=== PATIENT | female | born 1970 | race African-American/Black ===

== ENCOUNTER 2022-11-13 16:50 | Emergency (ER) | payer OTHER ==
--- OUTSIDE RECORDS SUMMARY | 2022-11-13 16:53 | XMS REPORT | Continuity of Care Document ---
:1970 Author Organization [facility] t Address [address] [place] [address] Care Team Providers Name Role Phone Tiago ORTIZ, Harika Mosquera Primary Care Physician [phone] MIROSLAVA OLEA Attending Clinician Unavailable MD ELOISA Attending Clinician Unavailable Payers Payer Name Policy Type Policy Number Effective Date Expiration Date S cherry HARTLEYNA 2 [id number] 1999 00:00:00 Problems Condition Condition Condition Status Onset Resolution Last Treating Co mments Source Name Details Category Date Date Treatment Clinician Date Urinary Urinary Disease Active Methodi frequency frequency 06-21 st 00:00: Hospita 00 l Vulvovagin Vulvovagin Disease Active M ethodi itis itis 3 st 00:00: Hospita 00 l Uncontroll Uncontroll Disease Active M ethodi ed ed 816 st diabetes diabetes 00:00: Hospit a mellitus mellitus 00 l type 2 type 2 without without complicati complicati ons ons Allergies, Adverse Reactions, Alerts Allergy Allergy Status Severity Reaction(s) Onset Inactive Treating Comm ents Source Name Type Date Date Clinician Hydromor Propensi Active Other (See Hypotensi Methodi phone ty to Comments) 11-[address] adverse 00:00: muscle Hospita reaction 00 spasm l s to drug Family History Family Member Diagnosis Comments Start Date Stop Date Source Natural [facility] Maternal grandmother Diabetes [facility]aternal grandmother Heart disease [facility] Social History Social Habit Start Date Stop Date Quantity Comments Source Gender identity [facility] Alcohol intake 2020-06-21 2020-06-21 Current Jew 00:00:00 00:00:00 non-drinker of Hospital alcohol (finding) History of Social 2020-06-21 2020-06-[address] function 00:00:00 00:00:00 Hospital Tobacco use and 2019-05-29 2019-05-29 Smokeless Jew exposure 00:00:00 00:00:00 tobacco non-user Hospital Sex Assigned At [birth year] Jew 00:00:00 00:00:00 Hospital Smoking Status Start Date Stop Date Source Never smoked tobacco [facility] Medications Ordered Filled Start Stop Current Ordering Indication Dosage Frequency Signature Comments Components Source Medication Medication Date Date Medication? Clinician (SIG) Name Name indomethaci Yes 75mg QD Take 75 mg Methodi n SR 3-[address] (INDOCIN 10:25: daily. Hospita SR) 75 mg 11 l CR capsule allopurinoL Yes 100mg QD Take 100 M ethodi (ZYLOPRIM) 3-[address] 100 MG 10:25: mouth Hospita tablet 11 daily. l conjugated Yes Apply a Meth lisa estrogens 3-[address] (Premarin) 00:00: size Hospita 0.625 00 amount 1gm l mg/gram to the vaginal external cream vagina 2x per week before bed pen needle, Yes BD Method i diabetic 3-[address] (BD 13:32: [place] Pen Hospita ULTRA-FINE 18 [place] 32 l ADENIKE PEN gauge x NEEDLES) 32 5/32" gauge x 5/32" needle atorvastati Yes TAKE 1 Meth lisa n (LIPITOR) 8-[address] 20 MG 00:00: MOUTH Hospita tablet 00 NIGHTLY l amLODIPine Yes amlodipine M ethodi (NORVASC) 6-[address] 10 mg 00:00: tablet, Hospita tablet 00 one tab l daily hydroCHLORO Yes hydrochlor Methodi thiazide 5-[address] (HYDRODIURI 00:00: 25 mg Hospi ta L) 25 MG 00 tablet, l tablet one tab daily lisinopril Yes 20mg QD Take 1 Metho di (PRINIVIL,Z 5-23 tablet (20 st ESTRIL) 20 00:00: mg total) Ho spita mg tablet 00 by mouth l once daily. HUMALOG 100 Yes USE 100 Met hodi unit/mL 5-[address] injection 00:00: DAILY IN Hosp rowena 00 PUMP l blood sugar 2015-04 Yes For One Met hodi diagnostic 2-[address] strips 00:00: VERIO 4-5 Hospit a strip test 00 times/day l strips glucose testing lancets 33 2015-04 Yes For One Meth lisa gauge misc 2-[address] 00:00: Verio Hospita 00 lancet l device for 5times/day glucose testing Procedures This patient has no known procedures. Plan of Care Planned Activity Planned Date Details Comments Source Future Scheduled 2022-10-04 Screening for [facility] Test 05:21:53 malignant neoplasm of colon (procedure) [code = 716822966] Future Scheduled 2022-10-04 Screening for [facility] Test 05:21:53 malignant neoplasm of colon (procedure) [code = 132243365] Future Scheduled 2022-10-04 Screening for [facility] Test 05:21:53 malignant neoplasm of colon (procedure) [code = 371229849] Future Scheduled 2022-10-04 COVID-19 VACCINE (#1) [facility] Test 05:21:53 [code = COVID-19 VACCINE (#1)] Future Scheduled 2022-10-04 Pneumococcal Vaccine: [facility] Test 05:21:53 Pediatrics (0 to 5 Years) and At-Risk Patients (6 to 64 Years) (1 - PCV) [code = Pneumococcal Vaccine: Pediatrics (0 to 5 Years) and At-Risk Patients (6 to 64 Years) (1 - PCV)] Future Scheduled 2022-10-04 DIABETES: RETINAL EYE [facility] Test 05:21:53 EXAM [code = DIABETES: RETINAL EYE EXAM] Future Scheduled 2022-10-04 DIABETIC FOOT EXAM [facility] Test 05:21:53 [code = DIABETIC FOOT EXAM] Future Scheduled 2022-10-04 Hepatitis C screening [facility] Test 05:21:53 (procedure) [code = 179733276] Future Scheduled 2022-10-04 [facility] Test 05:21:53 malignant neoplasm of cervix (procedure) [code = 143803180] Future Scheduled 2022-10-04 BREAST CANCER [facility] Test 05:21:53 SCREENING [code = BREAST CANCER SCREENING] Future Scheduled 2022-10-04 [facility]ening for [facility] Test 05:21:53 malignant neoplasm of colon (procedure) [code = 279577584] Future Scheduled 2022-10-04 [facility]ening for [facility] Test 05:21:53 malignant neoplasm of colon (procedure) [code = 895297160] Future Scheduled 2022-10-04 URINE MICROALBUMIN [facility] Test 05:21:53 [code = URINE MICROALBUMIN] Future Scheduled 2022-10-04 SHINGLES VACCINES ([facility] Test 05:21:53 of 2) [code = SHINGLES VACCINES (1 of 2)] Future Scheduled 2022-10-04 INFLUENZA VACCINE [facility] Test 05:21:53 [code = INFLUENZA VACCINE] Encounters Start End Encounter Admission Attending Care Care Encounter Source Date/Time Date/Time Type Type Clinicians Facility Department ID 2021-08-03 2021-08-03 Outpatient MIROSLAVA OLEA [id number] [place] 00:00:00 00:00:00 Lamine lang 2021-08-03 2021-08-03 Outpatient TONE HUNT [id number] [place] 00:00:00 00:00:00 MD Lamine DUMONT 2021-06-30 2021-06-30 Outpatient TONE HUNT [id number] [place] 00:00:00 00:00:00 MD Lamine DUMONT 2021-06-01 2021-06-01 Outpatient MIROSLAVA OLEA [id number] [place] 00:00:00 00:00:00 Lamine lang 2021-02-18 2021-02-18 Outpatient TONE HUNT [id number] [place] 00:00:00 00:00:00 MD Lamine DUMONT 2020-06-21 2020-06-21 Outpatient [facility] [id number] [address] [place] [address] 00:00:00 00:00:[address] Results This patient has no known results.
--- NOTE | 2022-11-13 17:26 | RAD REPORT ---
EXAM DESCRIPTION: RAD - Chest Single View - 11/13/2022 5:21 pm CLINICAL HISTORY: CHEST PAIN COMPARISON: <Comparisons> FINDINGS: Lines: None. Lungs: No evidence of edema or pneumonia. Pleural: No significant pleural effusions or pneumothorax. Cardiac: The heart size is within normal limits. Mediastinum: Within normal limits. Bones: No acute fractures. Other: None IMPRESSION: No acute cardiopulmonary disease.
[2022-11-13 17:34] LABS: Absolute Lymphocytes (CBC) 4.1 K/uL (0.7-4.9); Hematocrit 41.8 % (36.0-45.0); MCV 88.1 fL (80-100); MPV 8.6 fL (7.6-11.3); RBC Red Blood Cell Count 4.74 M/uL (3.86-4.86)
[2022-11-13 17:51] LABS: Specific Gravity 1.014 (1.005-1.030); Urine Bacteria <20 /HPF (<20); Urine Bilirubin NEGATIVE (Negative); Urine Blood Negative (Negative); Urine Clarity Extremely Turbid (Clear); Urine Color Light-Yellow (Yellow); Urine Glucose NEGATIVE (Negative); Urine Mucus Slight /HPF (None Seen); Urine Protein NEGATIVE (Negative); Urine RBC <5 /HPF (None Seen); Urine Urobilinogen Normal (Normal)
[2022-11-13 17:55] LABS: ALT/SGPT 25 U/L (13-56); Albumin 4.2 g/dL (3.4-5.0); Alkaline Phosphatase 85 U/L (45-117); BUN Blood Urea Nitrogen 22 mg/dL (7-18); Bicarbonate 21 mEq/L (21-32); Bilirubin Total 0.3 mg/dL (0.2-1.0); Glomerular Filtration Rate 40 ml/min (=/>90); Glucose Level 156 mg/dL (74-106); Protein, Total 8.3 g/dL (6.4-8.2); Sodium Level 136 mEq/L (136-145); Troponin High Sensitivity 5.7 pg/mL (<58.9)
[2022-11-13 18:14] LABS: AST/SGOT 20 U/L (15-37); Potassium 4.4 mEq/L (3.5-5.1)
[2022-11-13 18:15] LABS: Bilirubin Direct < 0.1 mg/dL (0-0.2); Bilirubin Indirect, Calculated ND mg/dL (0.2-0.8); Magnesium 2.1 mg/dL (1.6-2.4)
--- NOTE | 2022-11-13 22:07 | ER ---
Nurse's Notes [facility] Name: Lynne Fung Age: 52 yrs Sex: Female : 1970 Arrival Date: 11/13/2022 Time: 16:50 Bed 7 Private MD: Diagnosis: Hypoglycemia, unspecified;Dysuria Presentation: 11/13 16:56 Chief complaint: EMS states: they were called to the patients home for low blood sugar. ap3 patient is a type 1 diabetic, and her meter was reading 40. patient ate a snack and started drinking orange juice. on patients arrival, patients blood sugar was 119. Coronavirus screen: At this time, the client does not indicate any symptoms associated with coronavirus-19. Ebola Screen: No symptoms or risks identified at this time. Risk Assessment: Do you want to hurt yourself or someone else? Patient reports no desire to harm self or others. Onset of symptoms was November 13, 2022. 16:56 Method Of Arrival: EMS: [facility] ap3 16:56 Acuity: ANATOLIY 3 ap3 17:00 Care prior to arrival: Medication(s) given: zofran 4 mg, IV initiated. 20 GA, in the ap3 right antecubital area. 19:11 Initial Sepsis Screen: Does the patient meet any 2 criteria? No. Patient's initial ap3 sepsis screen is negative. Does the patient have a suspected source of infection? No. Patient's initial sepsis screen is negative. Triage Assessment: 16:58 General: Appears in no apparent distress. Behavior is cooperative, anxious. Pain: ap3 Denies pain. Neuro: Level of Consciousness is awake, alert, obeys commands, Oriented to person, place, time, situation. Cardiovascular: Patient's skin is warm and dry. Respiratory: Airway is patent Respiratory effort is even, unlabored, Respiratory pattern is regular, symmetrical. GI: Reports nausea. 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 - Social history:: Smoking status: Patient denies any tobacco usage or history of. - Family history:: not pertinent. Screenin:59 [facility] ED Fall Risk Assessment (Adult) History of falling in the last 3 months, ap3 including since admission No falls in past 3 months (0 pts). Abuse screen: Denies threats or abuse. Nutritional screening: No deficits noted. Tuberculosis screening: No symptoms or risk factors identified. Assessment: 19:12 Reassessment: Patient and/or family updated on plan of care and expected duration. Pain ap3 level reassessed. Patient is alert, oriented x 3, equal unlabored respirations, skin warm/dry/pink. Patient states feeling better. Patient states symptoms have improved. 19:12 General: report given to Macy RN and LUBA Molina. ap3 19:56 General: Appears in no apparent distress. comfortable, Behavior is calm, cooperative. lg3 Pain: Denies pain. Neuro: No deficits noted. Ramirez Agitation-Sedation Scale (RASS): 0 - Alert and Calm Level of Consciousness is awake, alert, obeys commands, Oriented to person, place, time, situation. Cardiovascular: No deficits noted. Denies chest pain, shortness of breath, Capillary refill < 3 seconds Clubbing of nail beds is absent JVD is absent Patient's skin is warm and dry. Respiratory: No deficits noted. Airway is patent Respiratory effort is even, unlabored, Respiratory pattern is regular, symmetrical. GI: No deficits noted. No signs and/or symptoms were reported involving the gastrointestinal system. : No deficits noted. No signs and/or symptoms were reported regarding the genitourinary system. EENT: No deficits noted. No signs and/or symptoms were reported regarding the EENT system. Derm: No deficits noted. No signs and/or symptoms reported regarding the dermatologic system. Skin is intact, is healthy with good turgor, Skin is dry, Skin is normal, Skin temperature is warm. Musculoskeletal: No deficits noted. No signs and/or symptoms reported regarding the musculoskeletal system. Circulation, motion, and sensation intact. Range of motion: intact in all extremities. 21:34 Reassessment: Patient appears in no apparent distress at this time. No changes from lg3 previously documented assessment. Patient and/or family updated on plan of care and expected duration. Pain level reassessed. Patient is alert, oriented x 3, equal unlabored respirations, skin warm/dry/pink. Patient denies pain at this time. Patient states feeling better. Patient states symptoms have improved. Vital Signs: 17:39 BP 113 / 70 LA Sitting; Pulse 105; Resp 17; Temp 98.6(O); Pulse Ox 98% on R/A; rs5 17:42 BP 113 / 70; Pulse 102; Pulse Ox 98% on R/A; ap3 18:19 BP 126 / 82; Pulse 98; Pulse Ox 97% on R/A; ap3 19:56 BP 121 / 77; Pulse 90; Resp 17 S; Pulse Ox 98% on R/A; lg3 21:34 BP 129 / 82; Pulse 86; Resp 16 S; Pulse Ox 98% on R/A; lg3 ED Course: 16:56 Patient arrived in ED. ap3 16:56 Berny Watson MD is Attending Physician. rt 16:57 Triage completed. ap3 16:59 Nolvia Cheek, RN is Primary Nurse. ap3 16:59 Arm band placed on right wrist. ap3 16:59 Patient has correct armband on for positive identification. Bed in low position. Call ap3 light in reach. Side rails up X 1. Pulse ox on. NIBP on. 17:22 XRAY Chest (1 view) In Process Unspecified. EDMS 18:44 Attending Physician role handed off by Berny Watson MD jr11 18:44 Philipp Mari MD is Attending Physician. jr11 19:11 No provider procedures requiring assistance completed. ap3 21:05 Attending Physician role handed off by Philipp Mari MD sp4 21:05 Arcadio Mckeon MD is Attending Physician. sp4 22:18 IV discontinued, intact, bleeding controlled, No redness/swelling at site. Pressure lg3 dressing applied. Administered Medications: 19:06 Drug: NS 0.9% IV 1000 ml Route: IV; Rate: 1 bolus; Site: right antecubital; ap3 21:32 Follow up: Response: No adverse reaction; IV Status: Completed infusion; IV Intake: lg3 1000ml Medication: 22:18 VIS not applicable for this client. lg3 Intake: 21:32 IV: 1000ml; Total: 1000ml. lg3 Outcome: 22:06 Discharge ordered by . sp4 22:18 Discharged to home ambulatory. lg3 22:18 Condition: stable 22:18 Discharge instructions given to patient, Instructed on discharge instructions, follow up and referral plans. medication usage, Demonstrated understanding of instructions, follow-up care, medications, Prescriptions given X 1. 22:18 Patient left the ED. lg3 Signatures: Dispatcher [employer] EDMS Nolvia Cheek RN RN ap3 Macy Damon RN RN lg3 Philipp Mari MD MD jr11 Berny Watson MD MD rt Jeremy Almaguer RN RN rs5 Arcadio Mckeon MD MD sp4 Corrections: (The following items were deleted from the chart) 16:58 16:57 PMHx: Diabetes mellitus; ap3 ap3
--- NOTE | 2022-11-13 22:07 | EDPHYS ---
Physician Documentation [facility] Name: Lynne Fung Age: 52 yrs Sex: Female : 1970 Arrival Date: 11/13/2022 Time: 16:50 Bed 7 Private MD: ED Physician Arcadio Mckeon HPI: 11/13 17:29 This 52 yrs old Black Female presents to ER via EMS with complaints of Low Blood Sugar. rt 17:29 Patient presents to the ED with hypoglycemia. Patient does use an insulin pump and a rt continuous glucose monitor. She states that her blood sugar dropped to 40. She states that for months, her blood sugar will drop into the 50s overnight but is never dropped this low before. Patient states that she felt very weak, shaky when this occurred. Patient did drink some juice, ate some cookies which did improve her blood sugar, subsequently developed a left-sided chest pain, worse with movement and deep inspiration. Denies other acute complaints at this time. Symptoms are moderate severity, no other aggravating or alleviating factors. 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 - Social history:: Smoking status: Patient denies any tobacco usage or history of. - Family history:: not pertinent. ROS: 17:29 Constitutional: Negative for fever, chills, and weight loss, Respiratory: Negative for rt shortness of breath, cough, wheezing, and pleuritic chest pain, Abdomen/GI: Negative for abdominal pain, nausea, vomiting, diarrhea, and constipation, MS/Extremity: Negative for injury and deformity, Skin: Negative for injury, rash, and discoloration, Psych: Negative for depression, anxiety, suicide ideation, homicidal ideation, and hallucinations. 17:29 Cardiovascular: Positive for chest pain, Negative for edema. 17:29 Neuro: Positive for weakness, Negative for altered mental status. Exam: 17:29 Constitutional: This is a well developed, well nourished patient who is awake, alert, rt and in no acute distress. Head/Face: Normocephalic, atraumatic. Chest/axilla: Normal chest wall appearance and motion. Nontender with no deformity. No lesions are appreciated. Cardiovascular: Regular rate and rhythm with a normal S1 and S2. No gallops, murmurs, or rubs. Normal PMI, no JVD. No pulse deficits. Respiratory: Lungs have equal breath sounds bilaterally, clear to auscultation and percussion. No rales, rhonchi or wheezes noted. No increased work of breathing, no retractions or nasal flaring. Abdomen/GI: Soft, non-tender, with normal bowel sounds. No distension or tympany. No guarding or rebound. No evidence of tenderness throughout. Skin: Warm, dry with normal turgor. Normal color with no rashes, no lesions, and no evidence of cellulitis. MS/ Extremity: Pulses equal, no cyanosis. Neurovascular intact. Full, normal range of motion. Neuro: Awake and alert, GCS 15, oriented to person, place, time, and situation. Cranial nerves II-XII grossly intact. Motor strength 5/5 in all extremities. Sensory grossly intact. Cerebellar exam normal. Normal gait. Psych: Awake, alert, with orientation to person, place and time. Behavior, mood, and affect are within normal limits. 18:03 ECG was reviewed by the Attending Physician. rt Vital Signs: 17:39 BP 113 / 70 LA Sitting; Pulse 105; Resp 17; Temp 98.6(O); Pulse Ox 98% on R/A; rs5 17:42 BP 113 / 70; Pulse 102; Pulse Ox 98% on R/A; ap3 18:19 BP 126 / 82; Pulse 98; Pulse Ox 97% on R/A; ap3 19:56 BP 121 / 77; Pulse 90; Resp 17 S; Pulse Ox 98% on R/A; lg3 21:34 BP 129 / 82; Pulse 86; Resp 16 S; Pulse Ox 98% on R/A; lg3 MDM: 16:56 Patient medically screened. rt 22:08 Differential diagnosis: hyperglycemia, hyperthyroidism, hypoglycemic episode, sp4 hypothyroidism, myxedema coma, new onset diabetes. Data reviewed: vital signs, nurses notes, lab test result(s). Consideration of Admission/Observation Escalation of care including admission/observation considered. ED course: Blood sugar stabilized unless blood sugar 150. Patient is feeling better. Patient will be switched to cephalexin instead of Bactrim for her UTI. Patient requested to be referred to pattern clerk and we can refer patient to Dr. Andres in [place]. 11/13 16:57 Order name: Basic Metabolic Panel; Complete Time: 18:44 rt 11/13 16:57 Order name: CBC with Diff; Complete Time: 17:47 rt 11/13 16:57 Order name: D-Dimer; Complete Time: 18:44 rt 11/13 16:57 Order name: LFT's; Complete Time: 18:44 rt 11/13 16:57 Order name: Magnesium; Complete Time: 18:44 rt 11/13 16:57 Order name: Troponin HS; Complete Time: 18:44 rt 11/13 16:57 Order name: Lactate w/ 2H reflex if indic.; Complete Time: 18:44 rt 11/13 16:57 Order name: UAM; Complete Time: 18:44 rt 11/13 21:44 Order name: Glucose, Ancillary Testing; Complete Time: 21:56 EDMS 11/13 16:57 Order name: XRAY Chest (1 view); Complete Time: 17:29 rt 11/13 16:57 Order name: EKG; Complete Time: 16:57 rt 11/13 16:57 Order name: Cardiac monitoring; Complete Time: 17:57 rt 11/13 16:57 Order name: EKG - Nurse/Tech; Complete Time: 17:57 rt 11/13 16:57 Order name: IV Saline Lock; Complete Time: 16:59 rt 11/13 16:57 Order name: Labs collected and sent; Complete Time: 16:59 rt 11/13 16:57 Order name: O2 Per Protocol; Complete Time: 16:59 rt 11/13 16:57 Order name: O2 Sat Monitoring; Complete Time: 16:59 rt 11/13 21:18 Order name: Accucheck Blood Glucose; Complete Time: 21:32 sp4 EC:03 Rate is 103 beats/min. Rhythm is regular, Sinus tachycardia with No ectopy. QRS [place] is rt Normal. LA interval is normal. QRS interval is normal. QT interval is normal. No Q waves. T waves are Normal. No ST changes noted. Interpreted by me. Administered Medications: 19:06 Drug: NS 0.9% IV 1000 ml Route: IV; Rate: 1 bolus; Site: right antecubital; ap3 21:32 Follow up: Response: No adverse reaction; IV Status: Completed infusion; IV Intake: lg3 1000ml Disposition Summary: 11/13/22 22:06 Discharge Ordered Location: Home sp4 Problem: new sp4 Symptoms: have improved sp4 Condition: Stable sp4 Diagnosis - Hypoglycemia, unspecified sp4 - Dysuria sp4 Followup: sp4 - With: Private Physician - When: 1 - 2 days - Reason: Recheck today's complaints Discharge Instructions: - Discharge Summary Sheet sp4 - Hypoglycemia sp4 Forms: - Patient Portal Instructions sp4 Prescriptions: - Cephalexin 250 mg Oral Capsule - take 1 capsule by ORAL route every 12 hours for 10 days; 20 capsule; Refills: sp4 0, Product Selection Permitted Signatures: Dispatcher [employer] Nolvia Terry RN RN ap3 Philipp Mari MD MD jr11 Berny Watson MD MD rt Arcadio Mckeon MD MD sp4 Macy Damon RN lg3 Corrections: (The following items were deleted from the chart) 16:58 16:57 PMHx: Diabetes mellitus; ap3 ap3
[2022-11-13 23:12] VITALS: TEMP 98.6
[2022-11-13 23:14] VITALS: O2SAT 98
[2022-11-13 23:16] VITALS: BP 129/82
--- NOTE | 2022-11-15 17:41 | EKG ---
Test Date: 2022-11-13 Test Time: 17:58:43 Shelter Advocate: VIANCA MEASUREMENT RESULTS: Intervals: Rate: 103 NH: 130 QRSD: 88 QT: 370 QTc: 484 [place]: P: 80 NH: 130 QRS: 44 T: 64 INTERPRETIVE STATEMENTS: Sinus tachycardia Otherwise normal ECG Compared to ECG 06/05/2007 04:31:53 Sinus rhythm no longer present Left ventricular hypertrophy no longer present Electronically Signed On 11-15-22 17:35:33 CDT by Jude Kelly
== END 2022-11-13 22:18 | disposition home or self-care (01) ==
LOC: ER 16:50
DX: E10.649 Type 1 diabetes mellitus with hypoglycemia without coma (principal); Z79.4 Long term (current) use of insulin; Z96.41 Presence of insulin pump (external) (internal); R30.0 Dysuria; I10 Essential (primary) hypertension
CPT/HCPCS: 36415; 71045; 80048; 80076; 81001; 82947; 83605; 83735; 84484; 85025; 85379; 93005; 96360; 96361; 99284

== ENCOUNTER 2023-03-12 04:33 | Emergency (ER) | payer OTHER ==
--- OUTSIDE RECORDS SUMMARY | 2023-03-12 04:37 | XMS REPORT | Continuity of Care Document ---
:1970 Author Organization [facility] t Address [address] [place] [address] Care Team Providers Name Role Phone Tiago ORTIZ, Harika Mosquera Primary Care Physician [phone] ANKUSH MOTTA Attending Clinician Unavailable MIROSLAVA OLEA Attending Clinician Unavailable MD ELOISA Attending Clinician Unavailable Payers Payer Name Policy Type Policy Number Effective Date Expiration Date S cherry COLLIER 2 [id number] 1999 00:00:00 Problems Condition Condition Condition Status Onset Resolution Last Treating Co mments Source Name Details Category Date Date Treatment Clinician Date Urinary Urinary Disease Active Methodi frequency frequency 06-21 00:00: Hospita 00 l Vulvovagin Vulvovagin Disease Active M ethodi itis itis [address] [facility] 00:00: Hospita 00 l Uncontroll Uncontroll Disease Active M ethodi ed ed [address] [facility] diabetes diabetes 00:00: Hospit a mellitus mellitus 00 l type 2 type 2 without without complicati complicati ons ons Allergies, Adverse Reactions, Alerts Allergy Allergy Status Severity Reaction(s) Onset Inactive Treating Comm ents Source Name Type Date Date Clinician Divya Short Active Other (See Hypotensi Methodi phone ty to Comments) 11-[address] adverse 00:00: muscle Hospita reaction 00 spasm l s to drug Family History Family Member Diagnosis Comments Start Date Stop Date Source [facility] Maternal grandmother Diabetes [facility] Maternal grandmother Heart disease [facility] Paternal grandmother Cancer [facility] Social History Social Habit Start Date Stop Date Quantity Comments Source Gender identity [facility] Alcohol intake 2020-06-21 2020-06-21 Current [facility] 00:00:00 00:00:00 non-drinker of Hospital alcohol (finding) History of Social 2020-06-21 2020-06-[address] function 00:00:00 00:00:00 Hospital Tobacco use and 2019-05-29 2019-05-29 Smokeless [facility] exposure 00:00:00 00:00:00 tobacco non-user Hospital Sex Assigned At [birth year] [facility] 00:[facility]:00 [facility] Smoking Status Start Date Stop Date Source Never smoked tobacco [facility] Medications Ordered Filled Start Stop Current [...] 10:25: mouth Hospita tablet 11 daily. l indomethaci Yes 75mg QD Take 75 mg [...] cream vagina 2x per week before bed conjugated Yes Apply a Meth lisa estrogens 3-[address] (Premarin) 00:00: size Hospita 0.625 00 amount 1gm l mg/gram to the vaginal external cream vagina 2x per week before bed pen needle, Yes BD Method i diabetic [address] (BD 13:32: Saeed Pen [facility]osp[facility] ULTRA-FINE 18 [place] 32 l SAEED PEN gauge x NEEDLES) 32 5/32" gauge x 5/32" needle pen needle, Yes BD Method i diabetic 3-[address] (BD 13:32: Saeed Pen [facility]osp[facility] ULTRA-FINE 18 [place] 32 l SAEED PEN gauge x NEEDLES) 32 5/32" gauge x 5/32" needle atorvastati Yes TAKE 1 Meth lisa n (LIPITOR) 8-[address] 20 MG 00:00: MOUTH Hospita tablet 00 NIGHTLY l atorvastati Yes TAKE 1 Meth lisa n (LIPITOR) 8-[address] 20 MG 00:00: MOUTH [facility]ospita tablet 00 NIGHTLY l amLODIPine Yes amlodipine M ethodi (NORVASC) 6-[address] 10 mg 00:00: tablet, Hospita tablet 00 one tab l daily amLODIPine Yes amlodipine M ethodi (NORVASC) 6-[address] 10 mg 00:00: tablet, Hospita tablet 00 one tab l daily hydroCHLORO Yes hydrochlor Methodi thiazide 5-[address] (HYDRODIURI 00:00: 25 mg Hospi ta L) 25 MG 00 tablet, l tablet one tab daily hydroCHLORO Yes hydrochlor Methodi thiazide 5-[address] (HYDRODIURI 00:00: 25 mg Hospi ta L) 25 MG 00 tablet, l tablet one tab daily lisinopril Yes 20mg QD Take 1 Metho di (PRINIVIL,Z 5-23 tablet (20 st ESTRIL) 20 00:00: mg total) Ho spita mg tablet 00 by mouth l once daily. lisinopril Yes 20mg QD Take 1 Metho di (PRINIVIL,Z 5-23 tablet (20 st ESTRIL) 20 00:00: mg total) Ho spita mg tablet 00 by mouth l once daily. HUMALOG 100 Yes USE 100 Met hodi unit/mL 5-[address] injection 00:00: DAILY IN Hosp rowena 00 PUMP l HUMALOG 100 Yes USE 100 Met hodi [...] lancet l device for 5times/day glucose testing blood sugar 2015-04 Yes For One Met [...] Planned Date Details Comments Source Future Scheduled 2023-02-07 Screening for [facility] Test 04:30:53 malignant neoplasm of colon (procedure) [code = 045738603] Future Scheduled 2023-02-07 Screening for [facility] Test 04:30:53 malignant neoplasm of colon (procedure) [code = 503500912] Future Scheduled 2023-02-07 Screening for [facility] Test 04:30:53 malignant neoplasm of colon (procedure) [code = 628345094] Future Scheduled 2023-02-07 COVID-19 VACCINE (#1) [facility] Test 04:30:53 [code = COVID-19 VACCINE (#1)] Future Scheduled 2023-02-07 Pneumococcal Vaccine: [facility] Test 04:30:53 Pediatrics (0 to 5 Years) and At-Risk Patients (6 to 64 Years) (1 - PCV) [code = Pneumococcal Vaccine: Pediatrics (0 to 5 Years) and At-Risk Patients (6 to 64 Years) (1 - PCV)] Future Scheduled 2023-02-07 DIABETES: RETINAL EYE [facility] Test 04:30:53 EXAM [code = DIABETES: RETINAL EYE EXAM] Future Scheduled 2023-02-07 DIABETIC FOOT EXAM [facility] Test 04:30:53 [code = DIABETIC FOOT EXAM] Future Scheduled 2023-02-07 Hepatitis C screening [facility] Test 04:30:53 (procedure) [code = 268525998] Future Scheduled 2023-02-07 Screening for [facility] Test 04:30:53 malignant neoplasm of cervix (procedure) [code = 223137671] Future Scheduled 2023-02-07 BREAST CANCER [facility] Test 04:30:53 SCREENING [code = BREAST CANCER SCREENING] Future Scheduled 2023-02-07 Screening for [facility] Test 04:30:53 malignant neoplasm of colon (procedure) [code = 061443488] Future Scheduled 2023-02-07 Screening for [facility] Test 04:30:53 malignant neoplasm of colon (procedure) [code = 155771764] Future Scheduled 2023-02-07 [facility] Test 04:30:53 [code = URINE MICROALBUMIN] Future Scheduled 2023-02-07 SHINGLES VACCINES ([facility] Test 04:30:53 of 2) [code = SHINGLES VACCINES (1 of 2)] Future Scheduled 2023-02-07 INFLUENZA VACCINE (#1) [facility] Test 04:30:53 [code = INFLUENZA VACCINE (#1)] Future Scheduled 2022-10-04 Screening for [facility] Test 05:21:53 malignant neoplasm of colon (procedure) [code = 507433351] Future Scheduled 2022-10-04 Screening for [facility] Test 05:21:53 malignant neoplasm of colon (procedure) [code = 957780352] Future Scheduled 2022-10-04 Screening for [facility] Test 05:21:53 malignant neoplasm of colon (procedure) [code = 923950757] Future Scheduled 2022-10-04 COVID-19 VACCINE (#1) [facility] Test 05:21:53 [code = COVID-19 VACCINE (#1)] Future Scheduled 2022-10-04 Pneumococcal Vaccine: [facility] Test 05:21:53 Pediatrics (0 to 5 Years) and At-Risk Patients (6 to 64 Years) (1 - PCV) [code = Pneumococcal Vaccine: Pediatrics (0 to 5 Years) and At-Risk Patients (6 to 64 Years) (1 - PCV)] Future Scheduled 2022-10-04 DIABETES: RETINAL EYE [facility] Test 05:21:53 EXAM [code = DIABETES: RETINAL EYE EXAM] Future Scheduled 2022-10-04 DIABETIC FOOT EXAM [facility] Test 05:21:53 [code = DIABETIC FOOT EXAM] Future Scheduled 2022-10-04 Hepatitis C screening [facility] Test 05:21:53 (procedure) [code = 140098422] Future Scheduled 2022-10-04 Screening for [facility] Test 05:21:53 malignant neoplasm of cervix (procedure) [code = 949543099] Future Scheduled 2022-10-04 BREAST CANCER [facility] Test 05:21:53 SCREENING [code = BREAST CANCER SCREENING] Future Scheduled 2022-10-04 Screening for [facility] Test 05:21:53 malignant neoplasm of colon (procedure) [code = 964841801] Future Scheduled 2022-10-04 Screening for [facility] Test 05:21:53 malignant neoplasm of colon (procedure) [code = 506094822] Future Scheduled 2022-10-04 URINE MICROALBUMIN [facility] dist [...] Date/Time Type Type Clinicians Facility Department ID 2022-11-24 2022-11-24 Outpatient KENYA MOTTA [id number] [place] 08:30:00 08:30:00 ANKUSH Seybol d 2022-11-17 2022-11-17 Outpatient KENYA MOTTA [id number] [place] 09:15:00 09:15:00 ANKUSH Seybol d 2022-11-17 2022-11-17 Outpatient KENYA MOTTA [id number] [place] 08:45:00 08:45:00 ANKUSH Seybol d 2021-08-03 2021-08-03 Outpatient MIROSLAVA OLEA [id number] [place] 00:00:00 00:00:00 Seybol d 2021-08-03 2021-08-03 Outpatient TONE HUNT [id number] [place] 00:00:00 00:00:00 MD Anuj DUMONTybol precious 2021-06-30 2021-06-30 Outpatient TONE HUNT [id number] [place] 00:00:00 00:00:00 MD Lamine DUMONT 2021-06-01 2021-06-01 Outpatient MIROSLAVA OLEA [id number] [place] 00:00:00 00:00:00 Lamine lang 2021-02-18 2021-02-18 Outpatient TONE HUNT [id number] [place] 00:00:00 00:00:00 MD Lamine DUMONT 2020-06-21 2020-06-21 Outpatient [facility] [id number] [address] [place] [address] 00:00:00 00:00:[address] Results This patient has no known results.
[2023-03-12] MEDS ORDERED: MORPHINE 4 MG/ML SYR ONE (05:16)
[2023-03-12] MEDS ORDERED: GUAIFENESIN/DM 5 ML UCUP ONE (05:16)
[2023-03-12] MEDS ORDERED: ONDANSETRON 4 MG/2 ML VIAL ONE (05:16)
[2023-03-12] MEDS ORDERED: NA CHLORIDE 0.9% 1,000 ML ONE (05:16)
[2023-03-12] MEDS ORDERED: KETOROLAC 30 MG/ML INJ ONE (05:16)
[2023-03-12 05:33] LABS: Absolute Lymphocytes (CBC) 2.8 K/uL (0.7-4.9); Hematocrit 39.4 % (36.0-45.0); Lymphocytes % 34.7 % (15.3-44.8); MCV 87.6 fL (80-100); MPV 8.2 fL (7.6-11.3); Platelets 280 thou/uL (152-406)
[2023-03-12 05:35] LABS: Protime INR 1.08
[2023-03-12 05:55] LABS: ALT/SGPT 18 U/L (13-56); AST/SGOT 19 U/L (15-37); Albumin 3.6 g/dL (3.4-5.0); Alkaline Phosphatase 88 U/L (45-117); BUN Blood Urea Nitrogen 8 mg/dL (7-18); Bicarbonate 28 mEq/L (21-32); Bilirubin Total 0.3 mg/dL (0.2-1.0); Glomerular Filtration Rate 64 ml/min (=/>90); Glucose Level 71 mg/dL (74-106); Magnesium 2.4 mg/dL (1.6-2.4); NT PRO-BNP 14 pg/mL (<125); Potassium 3.4 mEq/L (3.5-5.1); Protein, Total 7.9 g/dL (6.4-8.2); Sodium Level 138 mEq/L (136-145); Troponin High Sensitivity 7.3 pg/mL (<58.9)
[2023-03-12 06:03] LABS: Bilirubin Direct < 0.1 mg/dL (0-0.2); Bilirubin Indirect, Calculated ND mg/dL (0.2-0.8)
[2023-03-12 06:10] LABS: SARS-COV-2 RT PCR NEGATIVE (NEGATIVE)
--- NOTE | 2023-03-12 07:55 | EDPHYS ---
Physician Documentation [facility] Name: Lynne Fung Age: 53 yrs Sex: Female : 1970 Arrival Date: 03/12/2023 Time: 04:33 Bed 7 Private MD: ED Physician Arcadio Mckeon HPI: 03/12 04:51 This 53 yrs old Black Female presents to ER via Ambulatory with complaints of General sp4 complaint . 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 05:25 -year-old female with history of hypertensive disorder, hypercholesterolemia, sp4 insulin-dependent diabetes with insulin pump, presents with 2 weeks of cough, fevers, feeling unwell, also vomiting this morning and left-sided pleuritic chest pain. . 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 - Social history:: Smoking status: Patient denies any tobacco usage or history of. Patient/guardian denies using alcohol, street drugs. - Family history:: not pertinent. ROS: 05:25 Constitutional: Positive fever, positive cough, positive pleuritic pain, positive sp4 left-sided pleuritic pain, positive vomiting Exam: 05:24 ECG was reviewed by the Attending Physician. There is EKG at 0 514, normal sinus rhythm sp4 normal EKG. EKG rate 89 05:25 Constitutional: This is a well developed, well nourished patient who is awake, alert, sp4 and in no acute distress. Head/Face: Normocephalic, atraumatic. Eyes: Pupils equal round and reactive to light, extra-ocular motions intact. Lids and lashes normal. Conjunctiva and sclera are not injected. Cornea within normal limits. Periorbital areas with no swelling, redness, or edema. ENT: Nares patent. No nasal discharge, no septal abnormalities noted. Tympanic membranes are normal and external auditory canals are clear. Oropharynx with no redness, swelling, or masses, exudates, or evidence of obstruction, uvula midline. Mucous membranes moist. Neck: Trachea midline, no thyromegaly or masses palpated, and no cervical lymphadenopathy. Supple, full range of motion without nuchal rigidity, or vertebral point tenderness. Chest/axilla: Normal chest wall appearance and motion. Nontender with no deformity. No lesions are appreciated. Cardiovascular: Regular rate and rhythm with a normal S1 and S2. No gallops, murmurs, or rubs. Normal PMI, no JVD. No pulse deficits. Respiratory: Lungs have equal breath sounds bilaterally, clear to auscultation and percussion. No rales, rhonchi or wheezes noted. No increased work of breathing, no retractions or nasal flaring. Abdomen/GI: Soft, non-tender, with normal bowel sounds. No distension or tympany. No guarding or rebound. No evidence of tenderness throughout. Back: No spinal tenderness. No costovertebral tenderness. Skin: Warm, dry with normal turgor. Normal color with no rashes, no lesions, and no evidence of cellulitis. MS/ Extremity: Pulses equal, no cyanosis. Neurovascular intact. Full, normal range of motion. Neuro: Awake and alert, GCS 15, oriented to person, place, time, and situation. Cranial nerves II-XII grossly intact. Motor strength 5/5 in all extremities. Sensory grossly intact. Psych: Awake, alert, with orientation to person, place and time. Behavior, mood, and affect are within normal limits Vital Signs: 04:49 BP 169 / 93; Pulse 98; Resp 18 S; Temp 99.7(O); Pulse Ox 97% on R/A; Weight 84.82 kg [facility] (R); Height 5 ft. 5 in. (R); Pain 8/10; 04:50 BP 159 / 92; Pulse 96; Resp 17 S; Pulse Ox 96% on R/A; ha1 06:58 BP 146 / 94; Pulse 73; Resp 16; Pulse Ox 95% ; bp 08:25 BP 145 / 90; Pulse 77; Resp 16; Pulse Ox 95% on R/A; iw 04:49 Body Mass Index 31.12 (84.82 kg, 165.1 cm) [facility] 04:49 Pain Scale: Adult [facility] Alicia Coma Score: 05:24 Eye Response: spontaneous(4). Motor Response: obeys commands(6). Verbal Response: sp4 oriented(5). Total: 15. MDM: 04:58 Patient medically screened. sp4 05:56 ED course: Chest X ray - COMPARISON: None TECHNIQUE: Single AP view of the chest. sp4 FINDINGS: Lung volumes adequate. Cardiac silhouette is normal in size. No pneumothorax. No large pleural effusion. No focal consolidation. No acute bony finding. IMPRESSION: No evidence of acute cardiopulmonary disease. . 07:58 Differential Diagnosis altered mental status, sepsis, flu. Data reviewed: vital signs, sp4 nurses notes, old medical records, lab test result(s), EKG, radiologic studies, plain films. Consideration of Admission/Observation Escalation of care including admission/observation considered. ED course: Patient revealed that she also has purulent sputum when she coughs. Will initiate Zithromax for 5 days. Otherwise stable for discharge home. . ED course: Patient has signs of pleurisy, viral versus bacterial bronchitis as well, upper respiratory infection. 03/12 04:57 Order name: Basic Metabolic Panel; Complete Time: 07:48 sp4 03/12 04:57 Order name: CBC with Diff; Complete Time: 07:48 sp4 03/12 04:57 Order name: LFT's; Complete Time: 07:48 sp4 03/12 04:57 Order name: Magnesium; Complete Time: 07:48 sp4 03/12 04:57 Order name: NT PRO-BNP; Complete Time: 07:48 sp4 03/12 04:57 Order name: PT-INR; Complete Time: 07:48 4 03/12 04:57 Order name: Troponin HS; Complete Time: 07:48 4 03/12 04:58 Order name: COVID-19/FLU A+B; Complete Time: 07:48 4 03/12 06:45 Order name: Respiratory Syncytial Virus Ag; Complete Time: 07:48 EDMS 03/12 04:57 Order name: XRAY Chest (1 view) [facility] 03/12 04:57 Order name: EKG; Complete Time: 04:58 [facility] 03/12 04:57 Order name: Cardiac monitoring; Complete Time: 04:58 [facility] 03/12 04:57 Order name: EKG - Nurse/Tech; Complete Time: 05:24 [facility] 03/12 04:57 Order name: IV Saline Lock; Complete Time: 05:24 [facility] 03/12 04:57 Order name: Labs collected and sent; Complete Time: 05:24 4 03/12 04:57 Order name: O2 Per Protocol; Complete Time: 04:58 4 03/12 04:57 Order name: O2 Sat Monitoring; Complete Time: 04:58 sp4 EC:24 Rate is 89 beats/min. Rhythm is regular, Normal Sinus Rhythm. QRS Rudyard is Normal. DE sp4 interval is normal. QRS interval is normal. QT interval is normal. No Q waves. T waves are Normal. No ST changes noted. Clinical impression: Normal ECG. Interpreted by me. Administered Medications: 05:25 Drug: Dextromethorphan-Guaifenesin PO Liquid 10 mg-100 mg/5 mL 10 ml PO once Route: PO; km8 05:25 Drug: morphine IVP or IV 4 mg IVP once over 4 mins Route: IVP; Infused Over: 4 mins; km8 Site: right antecubital; 05:25 Drug: Ketorolac IVP 30 mg IVP once Route: IVP; Site: right antecubital; km8 05:25 Drug: Ondansetron IVP 4 mg IVP once; over 2 minutes Route: IVP; Site: right antecubital;km8 05:25 Drug: NS 0.9% IV 1000 ml IV at 1 bolus Per protocol; 1000 mL bolus Route: IV; Rate: 1 km8 bolus; Site: right antecubital; 08:28 Drug: AZITHromycin PO 500 mg PO once Route: PO; Disposition Summary: 03/12/23 07:54 Discharge Ordered Notes: Location: Home sp4 Problem: new sp4 Symptoms: have improved sp4 Condition: Stable sp4 Diagnosis - Acute bronchiolitis due to respiratory syncytial virus sp4 - Acute bronchitis with purulent sputum sp4 Followup: sp4 - With: Private Physician - When: 7 - 10 days - Reason: Recheck today's complaints Discharge Instructions: - Discharge Summary Sheet sp4 - Acute Bronchitis, Adult, Pgcb-li-[id number] sp4 Forms: - Patient Portal Instructions sp4 Prescriptions: - dextromethorphan-guaifenesin 10-200 mg Oral capsule - take 2 capsule ORAL route every 6 hours PRN cough; 30 capsule; Refills: 0, sp4 Product Selection Permitted - Ibuprofen 600 mg Oral Tablet - take 1 tablet ORAL route every 6 hours As needed take with food; 30 tablet; sp4 Refills: 0, Product Selection Permitted - Tramadol 50 mg Oral tablet - take 1 tablet ORAL route every 8 hours PRN pain; 20 tablet; Refills: 0, Product sp4 Selection Permitted - Zithromax Z-Kian 250 mg Oral Tablet - take 1 tablet ORAL route as directed for 5 days Day 1 - take two (2) tablets sp4 one time. Day 2, 3, 4 , 5 take one (1) tablet once daily.; 6 tablet; Refills: 0, Product Selection Permitted - promethazine 25 mg Oral Tablet - take 1 tablet ORAL route every 6 hours As needed; 20 tablet; Refills: 0, sp4 Product Selection Permitted Signatures: Dispatcher [employer] Emilie Ellis RN RN iw Arcadio Mckeon MD MD sp4 Eleni Loomis RN RN km8 Corrections: (The following items were deleted from the chart) 05:26 05:25 -year-old female with history of hypertensive disorder, hypercholesterolemia, sp4 insulin-dependent diabetes with insulin pump, presents with 2 weeks of cough, fevers, feeling unwell, also vomiting this morning and left-sided pleuritic chest pain. . sp4 05:27 04:54 Allergies: No Known Allergies; km8 km8
--- NOTE | 2023-03-12 07:55 | ER ---
Nurse's Notes [facility] Name: Lynne Fung Age: 53 yrs Sex: Female : 1970 Arrival Date: 03/12/2023 Time: 04:33 Bed 7 Private MD: Diagnosis: Acute bronchiolitis due to respiratory syncytial virus;Acute bronchitis with purulent sputum Presentation: 03/12 04:49 Chief complaint: Patient states: cough, SOB, fever, and left sided rib pain starting 2 km8 weeks ago and getting worse 2 days ago. Coronavirus screen: Client denies travel out of the [place] in the last 14 days. Ebola Screen: No symptoms or risks identified at this time. Initial Sepsis Screen: Does the patient meet any 2 criteria? HR > 90 bpm. No. Patient's initial sepsis screen is negative. Does the patient have a suspected source of infection? No. Patient's initial sepsis screen is negative. Risk Assessment: Do you want to hurt yourself or someone else? Patient reports no desire to harm self or others. Onset of symptoms was February 26, 2023. 04:49 Method Of Arrival: Ambulatory km8 04:49 Acuity: ANATOLIY 3 km8 Triage Assessment: 04:49 General: Appears in no apparent distress. comfortable, Behavior is calm, cooperative, km8 appropriate for age. Pain: Complains of pain in left sided rib Pain currently is 8 out of 10 on a pain scale. Is intermittent, Aggravated by cough. EENT: Reports nasal congestion. Neuro: Ramirez Agitation-Sedation Scale (RASS): 0 - Alert and Calm Level of Consciousness is awake, alert, obeys commands, Oriented to person, place, time, situation. Cardiovascular: Reports shortness of breath, Capillary refill < 3 seconds Patient's skin is warm and dry. Respiratory: Reports shortness of breath cough that is productive, Airway is patent Respiratory effort is even, unlabored, Respiratory pattern is regular, symmetrical. GI: No signs and/or symptoms were reported involving the gastrointestinal system. : No signs and/or symptoms were reported regarding the genitourinary system. Derm: Skin is intact, is healthy with good turgor, Skin is dry, Skin is pink, warm \T\ dry. normal, Skin temperature is warm. Derm: No signs and/or symptoms reported regarding the dermatologic system. Musculoskeletal: No signs and/or symptoms reported regarding the musculoskeletal system. Range of motion: intact in all extremities. 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 - Social history:: Smoking status: Patient denies any tobacco usage or history of. Patient/guardian denies using alcohol, street drugs. - Family history:: not pertinent. Screenin:54 [facility] ED Fall Risk Assessment (Adult) History of falling in the last 3 months, 8 including since admission No falls in past 3 months (0 pts) Confusion or Disorientation No (0 pts) Intoxicated or Sedated No (0 pts) Impaired Gait No (0 pts) Mobility Assist Device Used No (0 pt) Altered Elimination No (0 pt) Score/Fall Risk Level 0 - 2 = Low Risk Oriented to surroundings, Maintained a safe environment, Educated pt \T\ family on fall prevention, incl call for assistance when getting out of bed, Assessed \T\ reinforced patient's understanding of fall precautions. Abuse screen: Denies threats or abuse. Denies injuries from another. Nutritional screening: No deficits noted. Tuberculosis screening: No symptoms or risk factors identified. Assessment: 04:50 General: Appears uncomfortable, Behavior is cooperative. Pain: Pain: Complains of pain ha1 in body aches. Neuro: Level of Consciousness is awake, alert, obeys commands, Oriented to person, place, time, situation. Cardiovascular: Capillary refill Patient's skin is warm and dry. Respiratory: Reports shortness of breath at rest cough that is fever Airway is patent Respiratory effort is even, unlabored, Respiratory pattern is regular, symmetrical. GI: Abdomen is round non-distended. Derm: Skin is moist, Skin is normal. Musculoskeletal: Circulation, motion, and sensation intact. Range of motion: intact in all extremities. 06:59 Reassessment: Patient appears in no apparent distress at this time. Patient is alert, bp oriented x 3, equal unlabored respirations, skin warm/dry/pink. 08:25 Reassessment: Patient appears in no apparent distress at this time. Patient and/or iw family updated on plan of care and expected duration. Pain level reassessed. Patient is alert, oriented x 3, equal unlabored respirations, skin warm/dry/pink. Patient states feeling better. Vital Signs: 04:49 BP 169 / 93; Pulse 98; Resp 18 S; Temp 99.7(O); Pulse Ox 97% on R/A; Weight 84.82 kg km8 (R); Height 5 ft. 5 in. (R); Pain 8/10; 04:50 BP 159 / 92; Pulse 96; Resp 17 S; Pulse Ox 96% on R/A; ha1 06:58 BP 146 / 94; Pulse 73; Resp 16; Pulse Ox 95% ; bp 08:25 BP 145 / 90; Pulse 77; Resp 16; Pulse Ox 95% on R/A; iw 04:49 Body Mass Index 31.12 (84.82 kg, 165.1 cm) km8 04:49 Pain Scale: Adult km8 [place] Coma Score: 05:24 Eye Response: spontaneous(4). Motor Response: obeys commands(6). Verbal Response: sp4 oriented(5). Total: 15. ED Course: 04:41 Patient arrived in ED. rv1 04:42 Fady Cee, LUBA is Primary Nurse. bp 04:49 Arm band placed on right wrist. km8 04:51 Triage completed. km8 04:51 Arcadio Mckeon MD is Attending Physician. sp4 04:53 Patient has correct armband on for positive identification. Placed in gown. Bed in low km8 position. Call light in reach. Side rails up X 1. Client placed on continuous cardiac and pulse oximetry monitoring. NIBP monitoring applied. director general on. 04:54 Patient maintains SpO2 saturation greater than 95% on room air. km8 05:08 XRAY Chest (1 view) In Process Unspecified. EDMS 05:23 Inserted saline lock: 22 gauge in right antecubital area, using aseptic technique. km8 Blood collected. 05:24 Troponin HS Sent. km8 05:24 PT-INR Sent. km8 05:25 NT PRO-BNP Sent. km8 05:25 Magnesium Sent. 8 05:25 LFT's Sent. 8 05:25 CBC with Diff Sent. km8 05:25 Basic Metabolic Panel Sent. km8 05:25 COVID-19/FLU A+B Sent. km8 08:26 No provider procedures requiring assistance completed. IV discontinued, intact, iw bleeding controlled, No redness/swelling at site. Pressure dressing applied. Administered Medications: 05:25 Drug: Dextromethorphan-Guaifenesin PO Liquid 10 mg-100 mg/5 mL 10 ml PO once Route: PO; [facility] 05:25 Drug: morphine IVP or IV 4 mg IVP once over 4 mins Route: IVP; Infused Over: 4 mins; [facility] Site: right antecubital; 05:25 Drug: Ketorolac IVP 30 mg IVP once Route: IVP; Site: right antecubital; km8 05:25 Drug: Ondansetron IVP 4 mg IVP once; over 2 minutes Route: IVP; Site: right antecubital;km 05:25 Drug: NS 0.9% IV 1000 ml IV at 1 bolus Per protocol; 1000 mL bolus Route: IV; Rate: 1 km8 bolus; Site: right antecubital; 08:28 Drug: AZITHromycin PO 500 mg PO once Route: PO; iw Medication: 08:28 VIS not applicable for this client. iw Outcome: 07:54 Discharge ordered by MD. castro 08:26 Discharged to home ambulatory, with family, iw 08:26 Condition: good 08:26 Discharge instructions given to patient, family, Instructed on discharge instructions, follow up and referral plans. Demonstrated understanding of instructions, follow-up care, medications, Prescriptions given X 5 08:30 Patient left the ED. iw Signatures: Dispatcher [employer] EDMS Emilie Andrews RN RN iw Fady Cee RN RN bp Leny Montenegro RN RN ha1 Radha Daniel rv1 Arcadio Mckeon MD MD sp4 Eleni Loomis RN RN km8 Corrections: (The following items were deleted from the chart) 05:27 04:54 Allergies: No Known Allergies; km8 km8 07:08 04:50 Pain: ha1 ha1
[2023-03-12] MEDS ORDERED: AZITHROMYCIN 250 MG TAB ONE (08:22)
[2023-03-12 08:36] VITALS: TEMP 99.7
[2023-03-12 08:39] VITALS: O2SAT 95
[2023-03-12 08:41] VITALS: BP 145/90
--- NOTE | 2023-03-12 14:08 | RAD REPORT ---
EXAM DESCRIPTION: Single AP view of the chest. CLINICAL HISTORY: CHEST PAIN COMPARISON: None TECHNIQUE: Single AP view of the chest. FINDINGS: Lung volumes adequate. Cardiac silhouette is normal in size. No pneumothorax. No large pleural effusion. No focal consolidation. No acute bony finding. IMPRESSION: No evidence of acute cardiopulmonary disease. Electronically signed by: Lele Muller MD 03/12/2023 05:49 AM DISTANCE LEARNING ADMINISTRATOR Due to temporary technical issues with the PACS/Fluency reporting system, reports are being signed by the in house radiologist without review as a courtesy to ensure prompt reporting. The interpreting r adiologist is fully responsible for the content of the report.
--- NOTE | 2023-03-15 15:30 | EKG ---
Test Date: 2023-03-12 Test Time: 05:14:22 Net Ui Developer: AYLIN MEASUREMENT RESULTS: Intervals: Rate: 89 IA: 142 QRSD: 84 QT: 386 QTc: 469 [place]: P: 69 IA: 142 QRS: 21 T: 42 INTERPRETIVE STATEMENTS: Normal sinus rhythm Normal ECG Compared to ECG 11/13/2022 17:58:43 Sinus tachycardia no longer present Electronically Signed On 03-15-23 15:16:35 CYTOLOGY TECHNOLOGIST by Jude Kelly
== END 2023-03-12 08:30 | disposition home or self-care (01) ==
LOC: ER 04:33
DX: J21.0 Acute bronchiolitis due to respiratory syncytial virus (principal); J20.9 Acute bronchitis, unspecified; I10 Essential (primary) hypertension; E78.00 Pure hypercholesterolemia, unspecified; E55.9 Vitamin D deficiency, unspecified; Z11.52 Encounter for screening for COVID-19
CPT/HCPCS: 93005; 85025; 80048; 36415; 83735; 85610; 80076; 84484; 83880; 0240U; 87807; 71045; 96375; 96374; 99285; J2405; J7030

== ENCOUNTER → 2023-05-04 | Emergency (ER) | payer OTHER ==
[~2023-05-04] MED LIST: AZITHROMYCIN 250 MG TAB ONE
--- NOTE | 2023-05-04 07:41 | RAD REPORT ---
EXAM DESCRIPTION: [place] Single View05/04/2023 7:16 am CLINICAL HISTORY: Cough COMPARISON: February 2023 FINDINGS: Lateral right lung base is mildly hazy. Left lung appears clear. Heart is normal size IMPRESSION: Lateral right lung base is mildly hazy. This may represent a a mild infiltrate or overly ing soft tissue. PA and lateral chest series is recommended
--- NOTE | 2023-05-04 08:07 | EDPHYS ---
Physician Documentation [facility] Name: Lynne Fung Age: 53 yrs Sex: Female : 1970 Arrival Date: 05/04/2023 Time: 06:32 Bed 5 Private MD: ED Physician Gage Stephen HPI: 05/04 07:08 This 53 yrs old Black Female presents to ER via Ambulatory with complaints of Pt states rn she tested postive for COVID 4 days ago and is having issues with low body temp. 07:08 The patient or guardian reports cough, described as mild, with productive sputum. rn Onset: The symptoms/episode began/occurred 5 day(s) ago. Severity of symptoms: At their worst the symptoms were moderate, in the emergency department the symptoms have improved. Modifying factors: The symptoms are alleviated by nothing, the symptoms are aggravated by nothing. The patient has not experienced similar symptoms in the past. Patient reports cough for 5 days, tested positive for COVID, reports productive cough with thick mucus but no shortness of breath. No chronic lung problems. Non-smoker. Patient reports taking Tylenol and Motrin and still having chills and cold sweats. Came in due to concern about regulation of body temperature.. 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 - Social history:: Smoking status: Patient denies any tobacco usage or history of. - Family history:: not pertinent. - Hospitalizations: : No recent hospitalization is reported. ROS: 07:08 Constitutional: Positive for fever and chills Cardiovascular: Negative for chest pain, rn palpitations, and edema, Respiratory: Positive for cough, negative for shortness of breath Abdomen/GI: Positive for diarrhea, negative for abdominal pain MS/Extremity: Negative for injury and deformity, Skin: Negative for injury, rash, and discoloration, Neuro: Positive for headache and generalized weakness Exam: 07:08 Constitutional: This is a well developed, well nourished patient who is awake, alert, rn and in no acute distress. Cardiovascular: Regular rate and rhythm. No pulse deficits. Respiratory: Speaking full sentences, unlabored. No increased work of breathing, no retractions or nasal flaring. Abdomen/GI: Soft, non-tender Skin: Warm, dry MS/ Extremity: Pulses equal, no cyanosis. Neuro: Awake and alert, GCS 15 Vital Signs: 06:53 BP 130 / 81; Pulse 95; Resp 18 S; Temp 98.7(O); Pulse Ox 96% on R/A; Weight 89.36 kg; jw7 Height 5 ft. 5 in. ; Pain 0/10; 07:28 BP 131 / 79; Pulse 92; Pulse Ox 95% on R/A; ap3 08:16 BP 125 / 84; Pulse 86; Pulse Ox 96% on R/A; ap3 06:53 Body Mass Index 32.78 (89.36 kg, 165.1 cm) [facility] 06:53 Pain Scale: Adult jw7 MDM: 06:58 Patient medically screened. rn 08:05 Differential Diagnosis: Bronchitis Viral Syndrome Pneumonia. Data reviewed: vital rn signs, nurses notes, radiologic studies, plain films, and as a result, I will discharge patient. Counseling: I had a detailed discussion with the patient and/or guardian regarding the historical points, exam findings, and any diagnostic results supporting the discharge/admit diagnosis, radiology results, the need for outpatient follow up, to return to the emergency department if symptoms worsen or persist or if there are any questions or concerns that arise at home. Special discussion: I discussed with the patient/guardian in detail that at this point there is no indication for admission to the hospital. It is understood, however, that if the symptoms persist or worsen the patient needs to return immediately for re-evaluation. 05/04 07:05 Order name: XRAY Chest (1 view); Complete Time: 07:55 rn Administered Medications: 08:09 Drug: AZITHromycin PO 500 mg PO once Route: PO; ap3 08:16 Follow up: Response: No adverse reaction ap3 Disposition Summary: 05/04/23 08:06 Discharge Ordered Notes: Location: Home rn Problem: new rn Symptoms: have improved rn Condition: Stable rn Diagnosis - Pneumonia due to SARS-associated coronavirus rn Followup: rn - With: Private Physician - When: As needed - Reason: Recheck today's complaints, Re-evaluation by your physician Discharge Instructions: - Discharge Summary Sheet rn - Community-Acquired Pneumonia, Adult, [id number] rn - COVID-19 rn Forms: - Medication Reconciliation Form rn - Thank You Letter rn - Antibiotic contracts intern - Prescription Opioid Use rn - Patient Portal Instructions rn - Leadership Thank You Letter rn Prescriptions: - Zithromax Z-Kian 250 mg Oral Tablet - take 1 tablet ORAL route as directed for 5 days Day 1 - take two (2) tablets rn one time. Day 2, 3, 4 , 5 take one (1) tablet once daily.; 6 tablet; Refills: 0, Product Selection Permitted Signatures: Dispatcher [employer] Gage Vallecillo MD MD rn Prokisch, Amanda RN RN ap3 Anna Hutchins RN RN jw7
--- NOTE | 2023-05-04 08:07 | ER ---
Nurse's Notes [facility] Name: Lynne Fung Age: 53 yrs Sex: Female : 1970 Arrival Date: 05/04/2023 Time: 06:32 Bed 5 Private MD: Diagnosis: Pneumonia due to SARS-associated coronavirus Presentation: 05/04 06:53 Chief complaint: Patient states: "I tested positive for COVID 3 days ago with a home jw7 test and have had a fever of 104. So I've been taking Tylenol and Ibuprofen to keep my fever down, then I woke up this morning in a cold sweat and my thermometer said my temperature was 36-37.". Coronavirus screen: Client reports previous positive COVID test result. Ebola Screen: No symptoms or risks identified at this time. Initial Sepsis Screen: Does the patient meet any 2 criteria? No. Patient's initial sepsis screen is negative. Does the patient have a suspected source of infection? No. Patient's initial sepsis screen is negative. Risk Assessment: Do you want to hurt yourself or someone else? Patient reports no desire to harm self or others. Onset of symptoms was May 04, 2023. 06:53 Method Of Arrival: Ambulatory jw7 06:53 Acuity: ANATOLIY 5 jw7 Triage Assessment: 06:59 General: Appears in no apparent distress. comfortable, Behavior is calm, cooperative. jw7 Pain: Complains of pain in chest when I cough Pain does not radiate. Pain at worst was 5 out of 10 on a pain scale. Quality of pain is described as squeezing, Pain began 2-3 days ago. Is episodic. EENT: No deficits noted. No signs and/or symptoms were reported regarding the EENT system. Neuro: Level of Consciousness is awake, alert, obeys commands, Oriented to person, place, time, situation. Cardiovascular: Capillary refill < 3 seconds Clubbing of nail beds is absent JVD is absent Patient's skin is warm and dry. Cardiovascular:. Respiratory: Airway is patent Trachea midline Respiratory effort is even, unlabored, Respiratory pattern is regular, symmetrical. GI: Abdomen is round non-distended, Bowel sounds present X 4 quads. : No deficits noted. No signs and/or symptoms were reported regarding the genitourinary system. Derm: Skin is intact, is healthy with good turgor, Skin is dry, Skin is normal, Skin temperature is warm. Musculoskeletal: Circulation, motion, and sensation intact. Range of motion: intact in all extremities. 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 - Social history:: Smoking status: Patient denies any tobacco usage or history of. - Family history:: not pertinent. - Hospitalizations: : No recent hospitalization is reported. Screenin:03 [facility] ED Fall Risk Assessment (Adult) History of falling in the last 3 months, jw7 including since admission No falls in past 3 months (0 pts) Score/Fall Risk Level 0 - 2 = Low Risk Oriented to surroundings, Maintained a safe environment. Abuse screen: Denies threats or abuse. Denies injuries from another. Nutritional screening: No deficits noted. Tuberculosis screening: No symptoms or risk factors identified. Assessment: 07:11 General: Appears in no apparent distress. Behavior is calm, cooperative, appropriate ap3 for age. Pain: Denies pain. Neuro: Level of Consciousness is awake, alert, obeys commands, Oriented to person, place, time, situation. Cardiovascular: Patient's skin is warm and dry. Respiratory: Reports cough that is productive, Airway is patent Respiratory effort is even, unlabored, Respiratory pattern is regular, symmetrical. Vital Signs: 06:53 BP 130 / 81; Pulse 95; Resp 18 S; Temp 98.7(O); Pulse Ox 96% on R/A; Weight 89.36 kg; jw7 Height 5 ft. 5 in. ; Pain 0/10; 07:28 BP 131 / 79; Pulse 92; Pulse Ox 95% on R/A; ap3 08:16 BP 125 / 84; Pulse 86; Pulse Ox 96% on R/A; ap3 06:53 Body Mass Index 32.78 (89.36 kg, 165.1 cm) jw7 06:53 Pain Scale: Adult [facility] ED Course: 06:33 Patient arrived in ED. jj6 06:58 Gage Stephen MD is Attending Physician. rn 06:59 Triage completed. jw7 07:03 Patient has correct armband on for positive identification. Bed in low position. Call [facility] light in reach. 07:03 Arm band placed on. jw7 07:10 Nolvia Cheek, RN is Primary Nurse. ap3 07:16 XRAY Chest (1 view) In Process Unspecified. EDMS 08:15 Provided Education on: discharge instructions. ap3 08:15 No provider procedures requiring assistance completed. Patient did not have IV access ap3 during this emergency room visit. Administered Medications: 08:09 Drug: AZITHromycin PO 500 mg PO once Route: PO; ap3 08:16 Follow up: Response: No adverse reaction ap3 Medication: 07:11 VIS not applicable for this client. ap3 Outcome: 08:06 Discharge ordered by . rn 08:15 Discharged to home ambulatory, ap3 08:15 Condition: good 08:15 Discharge instructions given to patient, Instructed on discharge instructions, follow up and referral plans. medication usage, Demonstrated understanding of instructions, follow-up care, medications, Prescriptions given X 1, 08:16 Patient left the ED. ap3 Signatures: Dispatcher [employer] EDMS Gage Stephen MD MD rn Prokisch, Amanda RN RN ap3 Ginny Guzmán jj6 Anna Hutchins RN RN jw7
[2023-05-04 12:24] VITALS: BP 125/84; TEMP 98.7; O2SAT 96
== END ==
LOC: ER 06:32
DX: U07.1 COVID-19 (principal); J12.81 Pneumonia due to SARS-associated coronavirus; I10 Essential (primary) hypertension; E10.9 Type 1 diabetes mellitus without complications; E78.00 Pure hypercholesterolemia, unspecified; E55.9 Vitamin D deficiency, unspecified; Z79.4 Long term (current) use of insulin; Z79.899 Other long term (current) drug therapy; Z88.5 Allergy status to narcotic agent
CPT/HCPCS: 71045; 99283